=== PATIENT | male | born 1965 | race Two or more races ===

== ENCOUNTER 2023-07-04 23:01 | Emergency (ER) | payer OTHER ==
[~2023-07-04] VITALS: Ht 177.8 cm; Wt 86.9 kg
[2023-07-04 23:25] VITALS: BP 167/100; PULSE 86; RESP 18; O2SAT 94
== END 2023-07-05 00:14 | disposition left against medical advice (07) ==
LOC: ER 23:01
DX: M79.642 Pain in left hand (principal); M79.89 Other specified soft tissue disorders; Z53.21 Procedure and treatment not carried out due to patient leaving prior to being seen by health care provider; W57.XXXA Bitten or stung by nonvenomous insect and other nonvenomous arthropods, initial encounter; Y93.89 Activity, other specified; Y92.096 Garden or yard of other non-institutional residence as the place of occurrence of the external cause; Y99.8 Other external cause status